=== PATIENT | male | born 1995 | race African-American/Black ===

== ENCOUNTER 2020-10-24 12:49 | Emergency (ER) | payer SELFPAY ==
[2020-10-24] MEDS ORDERED: methylPREDNISolone Sod Succ/PF 125 MG/2 ML VIAL ONE (13:16)
[2020-10-24] MEDS ORDERED: diphenhydrAMINE 50 MG/ML VIAL ONE (13:16)
== END 2020-10-24 16:45 | disposition home or self-care (01) ==
LOC: MADERS 12:49
DX: T63.481A Toxic effect of venom of other arthropod, accidental (unintentional), initial encounter (principal); T78.2XXA Anaphylactic shock, unspecified, initial encounter
CPT/HCPCS: 94760; 96372; 96374; 96375; J1200; J2930